=== PATIENT | female | born 1965 | race Two or more races ===

== ENCOUNTER 2020-11-22 15:08 | Emergency (ER) | payer MEDICAID ==
[~2020-11-22] VITALS: Ht 154.9 cm; Wt 64.9 kg
--- NOTE | 2020-11-22 15:25 | NUR ---
PT WAS PLACED ON 5150 HOLD BY GISELLE
--- NOTE | 2020-11-22 15:29 | NUR ---
DAUGHTER LEFT CONTACT # [phone]
--- NOTE | 2020-11-22 15:41 | NUR ---
55 years old female depressed overdose with xanax of unknown quantity, alert, oriented x4 denies pain.
--- NOTE | 2020-11-22 15:44 | NUR ---
patient awaiting for medical clearance, ANITRA states she will call poison control.
[2020-11-22 15:49] LABS: BASOPHILS % (AUTO) 0.5 % (0.0-2.0); EOSINOPHILS % (AUTO) 1.8 % (0.0-6.0); HEMATOCRIT 39 % (33-45); HEMOGLOBIN 13.2 g/dL (11.5-14.8); LYMPHOCYTES % (AUTO) 28.7 % (20.0-44.0); MEAN CORPUSCULAR HGB CONC 34 g/dl (31.0-36.0); MEAN CORPUSCULAR VOLUME 89 fL (82-100); MONOCYTES # (AUTO) 0.5 K/uL (0.1-1.30); MONOCYTES % (AUTO) 7.8 % (2.0-12.0); NEUTROPHILS # (AUTO) 4.2 K/uL (1.8-8.9); NEUTROPHILS % (AUTO) 61.2 % (43.0-81.0); PLATELET COUNT (AUTO) 342 K/uL (150-450); RED BLOOD CELL COUNT(AUTO) 4.34 MIL/uL (4.0-5.2); WHITE BLOOD COUNT (AUTO) 6.9 K/uL (4.3-11.0)
[2020-11-22 15:57] LABS: CALCIUM, SERUM 8.8 mg/dL (8.5-10.1); CARBON DIOXIDE 26 mmol/L (21-32); CHLORIDE 94 mmol/L (98-107); CREATININE 0.7 mg/dL (0.6-1.3); GLUCOSE 92 mg/dL (74-106); POTASSIUM 3.9 mmol/L (3.5-5.1); SODIUM SERUM 128 mmol/L (136-145); UREA NITROGEN, BLOOD 7 mg/dL (7-18)
[2020-11-22 16:02] LABS: ALANINE AMINOTRANSFERASE 27 U/L (12-78); ALBUMIN 3.7 g/dL (3.4-5.0); ALKALINE PHOSPHATASE 67 U/L (46-116); ASPARTATE AMINOTRANSFERASE 20 U/L (15-37); BILIRUBIN,DIRECT 0.2 mg/dL (0.0-0.2); BILIRUBIN,TOTAL 0.9 mg/dL (0.2-1.0); TOTAL PROTEIN, SERUM 6.8 g/dL (6.4-8.2)
[2020-11-22 16:03] LABS: ACETAMINOPHEN < 0 ug/ml (10-30); ALCOHOL, BLOOD < 3 mg/dL (0-0)
[2020-11-22] MEDS: IV NS 0.9% 1,000 ML BAG IV ONE (16:50)
[2020-11-22 17:16] LABS: BILIRUBIN,URINE Negative (NEGATIVE); COLOR,URINE YELLOW (YELLOW); LEUKOCYTE ESTERASE ,URINE Negative (NEGATIVE); NITRITE, URINE Negative (NEGATIVE); PROTEIN,URINE Negative (NEGATIVE); UGLUCOSE Negative (NEGATIVE); UROBILINOGEN,URINE 0.2 EU/dL (0.2)
[2020-11-22 17:47] LABS: THYROID STIMULATING HORMONE 9.816 uIU/mL (0.358-3.74)
--- NOTE | 2020-11-22 18:19 | NUR ---
patient sleeping easily aroused to verbal stimuli, vital stable. on 5150 for danger to self.
--- NOTE | 2020-11-22 19:18 | NUR ---
report endorsed to incoming RN all questions answered.
--- NOTE | 2020-11-22 22:06 | NUR ---
[facility] VP DELIVERY PAGED
--- NOTE | 2020-11-23 00:16 | NUR ---
JESSE HA AT BEDSIDE TO VANIA MACK.
--- NOTE | 2020-11-23 01:03 | NUR ---
PT AMBULATORY TO THE BATHROOM WITH STEADY GAIT NOTED. PT CALM AND COOEPRATIVE. 1:1 SITTER REMAINS AT BEDSIDE FOR PT SAFETY. PT DENIES PAIN OR DISCOMFORT AT THIS TIME. NO ACUTE DISTRESS NOTED.
[2020-11-23 05:27] LABS: CALCIUM, SERUM 8.8 mg/dL (8.5-10.1); CREATININE 0.7 mg/dL (0.6-1.3); POTASSIUM 4.3 mmol/L (3.5-5.1)
--- NOTE | 2020-11-23 05:34 | NUR ---
AMBULATED TO THE RESTROOM AND BACK
--- NOTE | 2020-11-23 09:00 | NUR ---
ELEANOR FROM [facility] CALLED AT [phone]. ELEANOR WILL CALLBACK AFTER GETTING A BED
--- NOTE | 2020-11-23 09:02 | NUR ---
PATIENT A/OX4, BREATHING EVEN AND UNLABORED, NO SOB NOTED. NEEDS ATTENDED. GIVEN BREAKFAST TRAY.
--- NOTE | 2020-11-23 10:14 | NUR ---
BECCA, , RICH CALLED.
--- NOTE | 2020-11-23 10:27 | NUR ---
NURSE ELEANOR CALLED AND STATES THAT PT NEEDS A PCR AND THEN THEYLL PROVIDE A BED
--- NOTE | 2020-11-23 10:53 | NUR ---
WILL CLARIFY WITH [facility] RE: PCR TESTING. AWAITING FOR CHARGE NURSE TO CALL BACK.
--- NOTE | 2020-11-23 11:02 | NUR ---
CRISTAL called [facility] [phone] regarding PCR test and spoke to Barbara who clarified that they just want SO to complete PCR test and [facility] will take the pt. as long as we can provide PCR test result at some point. Notified ED RN, Sony [phone]
--- NOTE | 2020-11-23 11:24 | NUR ---
COVID PCR SENT TO LAB. AWAITING FOR BED ASSIGNED AT [facility]. INFORMED THE PATIENT RE: ACCEPTANCE.
--- NOTE | 2020-11-23 11:38 | NUR ---
ELEANOR FROM [facility] CALLED BACK. BED 144-[address] MENG NURSE TO NURSE REPORT AT [phone] PLEASE REPORT AFTER 1300
--- NOTE | 2020-11-23 12:44 | NUR ---
SET UP S TRANSPORT TO [facility]. SPOKE WITH KHLOE. ETA IS [id number]
--- NOTE | 2020-11-23 13:00 | NUR ---
NEW ROOM AT [facility] IS 285-A. CALL [phone] FOR REPORT
--- NOTE | 2020-11-23 13:09 | NUR ---
report given to Melinda Elizalde for otilia.
[2020-11-23 14:30] VITALS: BP 118/71
--- NOTE | 2020-11-23 15:01 | NUR ---
patient picked up by private ambulance going to [facility] in no distress.
== END 2020-11-23 15:01 | disposition short-term general hospital (02) ==
LOC: ER 15:12
DX: T42.4X2A Poisoning by benzodiazepines, intentional self-harm, initial encounter (principal); R53.83 Other fatigue; Y92.019 Unspecified place in single-family (private) house as the place of occurrence of the external cause; E87.1 Hypo-osmolality and hyponatremia; E02 Subclinical iodine-deficiency hypothyroidism; F32.9 Major depressive disorder, single episode, unspecified; F41.9 Anxiety disorder, unspecified; Z20.822 Contact with and (suspected) exposure to COVID-19; E11.9 Type 2 diabetes mellitus without complications
CPT/HCPCS: 36415 ×2; 80048 ×2; 80076; 80143; 80307; 80320; 81003; 84439; 84443; 84480; 85025; 87426; 93005; 96360; 99285; C9803 ×2; J7030; U0003; G0480

== ENCOUNTER 2021-07-04 13:13 | Inpatient (IN) | payer SELFPAY ==
[~2021-07-04] VITALS: Ht 157.5 cm; Wt 68.0 kg
--- NOTE | 2021-07-04 13:21 | NUR ---
BIBRA39 HOME, SYNCOPE AND WAS NOTED W/ SEIZURE LIKE ACTIVITY. BG 49 WAS GIVEN ORAL GLUCOSE SUPERVISOR CUTTING AND SEWING ROOM, BS UPON ARRIVAL 59, MD AWARE, AT BEDSIDE, PT AAOX2, BREATHING EVEN AND NON LABORED.
--- NOTE | 2021-07-04 13:25 | NUR ---
BS 59, DR QUEEN AWARE
[2021-07-04] MEDS ORDERED: IV D5/0.45 NACL 500 ML IV ONE (13:30)
--- NOTE | 2021-07-04 13:35 | NUR ---
MANAGER FLEET AT BEDSIDE FOR BLOOD DRAW
[2021-07-04 13:47] LABS: BASOPHILS # (AUTO) 0.1 K/uL (0.0-0.2); BASOPHILS % (AUTO) 0.6 % (0.0-2.0); HEMOGLOBIN 12.6 g/dL (11.5-14.8)
--- NOTE | 2021-07-04 14:18 | NUR ---
BACK FROM CT
[2021-07-04 14:22] LABS: CALCIUM, SERUM 9.2 mg/dL (8.5-10.1); CARBON DIOXIDE 25 mmol/L (21-32); CHLORIDE 96 mmol/L (98-107); CREATININE 0.8 mg/dL (0.6-1.3); GLUCOSE 83 mg/dL (74-106); POTASSIUM 4.1 mmol/L (3.5-5.1); SODIUM SERUM 134 mmol/L (136-145); UREA NITROGEN, BLOOD 21 mg/dL (7-18)
--- NOTE | 2021-07-04 14:26 | NUR ---
BS 147
--- NOTE | 2021-07-04 14:27 | NUR ---
DR ALCANTARA AT BEDSIDE TALKING TO THE PATIENT
[2021-07-04 14:28] LABS: ALANINE AMINOTRANSFERASE 30 U/L (12-78); ALKALINE PHOSPHATASE 97 U/L (46-116); ASPARTATE AMINOTRANSFERASE 33 U/L (15-37); BILIRUBIN,DIRECT 0.1 mg/dL (0.0-0.2); BILIRUBIN,TOTAL 0.8 mg/dL (0.2-1.0); TOTAL PROTEIN, SERUM 7.8 g/dL (6.4-8.2)
[2021-07-04 14:30] LABS: ACETAMINOPHEN 0 ug/ml (10-30); ALCOHOL, BLOOD < 3 mg/dL (0-0)
[2021-07-04 14:53] LABS: EOSINOPHILS % (AUTO) 3.2 % (0.0-6.0); HEMATOCRIT 39 % (33-45); LYMPHOCYTES % (AUTO) 25.8 % (20.0-44.0); MEAN CORPUSCULAR HGB CONC 33 g/dl (31.0-36.0); MEAN CORPUSCULAR VOLUME 84 fL (82-100); MONOCYTES # (AUTO) 0.7 K/uL (0.1-1.30); MONOCYTES % (AUTO) 6.4 % (2.0-12.0); NEUTROPHILS # (AUTO) 7.3 K/uL (1.8-8.9); RED BLOOD CELL COUNT(AUTO) 4.56 MIL/uL (4.0-5.2); WHITE BLOOD COUNT (AUTO) 11.5 K/uL (4.3-11.0)
[2021-07-04] MEDS ORDERED: ACETAMINOPHEN 325 MG TABLET PO ONE (15:00)
[2021-07-04] MEDS ORDERED: MIRT7.5T10 PO (15:05)
[2021-07-04] MEDS ORDERED: AMLO-212 PO (15:05)
[2021-07-04] MEDS ORDERED: SERT25TA PO (15:05)
[2021-07-04] MEDS ORDERED: LOSA100T31 PO (15:05)
[2021-07-04] MEDS ORDERED: METF-440 PO (15:05)
[2021-07-04] MEDS ORDERED: LEVO75TA7 PO (15:05)
[2021-07-04 15:13] LABS: PLATELET COUNT (AUTO) 313 K/uL (150-450)
[2021-07-04] MEDS ORDERED: ACETAMINOPHEN 325 MG TABLET ONE (15:18)
--- NOTE | 2021-07-04 15:22 | NUR ---
COVID SWAB DONE AND SENT TO LAB
[2021-07-04 16:36] LABS: BILIRUBIN,URINE NEGATIVE (NEGATIVE); COLOR,URINE YELLOW (YELLOW); LEUKOCYTE ESTERASE ,URINE NEGATIVE (NEGATIVE); NITRITE, URINE NEGATIVE (NEGATIVE); PH,URINE 6.5 (5.0-8.0); PROTEIN,URINE 30 mg/dl (NEGATIVE); UGLUCOSE NEGATIVE (NEGATIVE); UROBILINOGEN,URINE 0.2 EU/dL (0.2)
[2021-07-04 16:56] LABS: BACTERIA,URINE 1+ /HPF (None Seen)
--- NOTE | 2021-07-04 18:25 | NUR ---
DR DYSON AT BEDSIDE TALKING TO THE PATIENT
--- NOTE | 2021-07-04 18:47 | NUR ---
BED 310-2.
--- NOTE | 2021-07-04 19:22 | NUR ---
REPORT GIVEN TO CHAS DELONG FOR MANDO
--- NOTE | 2021-07-04 19:28 | NUR ---
MRSA SWAB COLLECTED AND SENT TO LAB. PATIENT'S BELONGINGS LIST DONE.
--- NOTE | 2021-07-04 19:32 | NUR ---
RN NOTES RECEIVED REPORT FROM ER, CHARGE NURSE AND PAYROLL CLERK AWARE; AWAITING FOR PATIENT ARRIVAL ON UNIT
--- NOTE | 2021-07-04 20:06 | NUR ---
CHAINSTITCH HEMMERAPPLICATIONS CONSULTANT NOTES PATIENT ARRIVED ON UNIT VIA [place] 2005, ACCOMPANIED BY 2 ER STAFF; PATIENT AAOX4, BREATHING EVEN AND UNLABORED; PATIENT TOLERATING ROOM AIR WELL; VSS; PATIENT DENIES ANY PAIN OR DISCOMFORT AT THIS TIME; NO DISTRESS NOTED; PATIENT IS AMBULATORY, WITH STEADY GAIT, USED RESTROOM PRIOR TO START OF ADMISSION; PATIENT EXPLAINED MEDICAL HISTORY; PATIENT VERBALIZED REASONS WHY SHE CAME TO HOSPITAL, PATIENT WORRIED ABOUT HER BLOOD SUGARS SINCE SHE WAS HYPOGLYCEMIC EARLIER TODAY; PATIENT ALSO REPORTED COVID VACCINATED, PATIENT DOES NOT WANT FLU/PNA VACCINE; PATIENT IS TELE; TELE MONITOR READS NSR 76BPM; PATIENT HAS R HAND #20G INTACT AND PATENT, FLUSHING WELL; NO S/S OF REDNESS OR INFILTRATION NOTED; PATIENT TOLERATING IVF D5NS @ 80ML/HR; PATIENT ORIENTED TO STAFF AND UNIT; EXPLAINED TO PATIENT PLAN OF CARE, PATIENT VERBALIZED UNDERSTANDING OF TREATMENT PLAN AND MEDICATION REGIME; PATIENT IS AWARE OF BLOOD SUGAR CHECKS AND VITAL SIGNS DONE EVERY 4 HOURS; BED LOCKED IN LOW POSITION; SIDE RAILS X2 UP; CALL LIGHT WITHIN REACH; WILL CONT TO MONITOR PATIENT
[2021-07-04] MEDS ORDERED: ACETAMINOPHEN 325 MG TABLET PO PRN (20:30)
[2021-07-04] MEDS ORDERED: Z GUARD REMEDY 4 OZ OINT TP PRN (20:30)
[2021-07-04] MEDS ORDERED: DEXTROSE 50%-WATER 50 ML DISP.SYRIN IV PRN (20:30)
[2021-07-04] MEDS ORDERED: ONDANSETRON HCL/PF 4 MG/2 ML VIAL IVP PRN (20:30)
--- NOTE | 2021-07-04 20:30 | NUR ---
PT TRANSFERRED VIA [facility]S
[2021-07-04 20:59] VITALS: BP 139/72
[2021-07-04 21:00] VITALS: BP 139/72
[2021-07-04] MEDS: IV D5/ 0.9% NACL 1,000 ML IV PRN (21:19)
[2021-07-04] MEDS: BLOOD SUGAR DIAGNOSTIC 1 EACH STRIP IN SCH (21:27)
[2021-07-04] MEDS: MIRTAZAPINE 15 MG TABLET PO SCH (21:27)
[2021-07-04] MEDS: ENOXAPARIN SODIUM 40 MG/0.4 ML DISP.SYRIN SQ SCH (21:28)
[2021-07-05] VITALS: BP 123/59
[2021-07-05] MEDS: BLOOD SUGAR DIAGNOSTIC 1 EACH STRIP IN SCH ×6 (00:32→21:37)
--- NOTE | 2021-07-05 00:35 | NUR ---
FOREST OFFICER NOTES PATIENT BLOOD SUGAR 94MG/DL, PATIENT PROVIDED SNACK AND JUICE. PATIENT AWARE OF ROUTINE ACCU CHECKS SCHEDULED EVERY 4 HOURS THROUGHOUT HER HOSPITALIZATION; WILL CONT TO MONITOR
[2021-07-05 04:00] VITALS: BP 130/72
--- NOTE | 2021-07-05 04:25 | NUR ---
MANDOLIN REPAIRER NOTES PATIENT BLOOD SUGAR 100MG/DL 0425; NO COVERAGE NEEDED; PATIENT ON D5NS @80ML/HR; CHARGE NURSE AWARE OF ACCU CHECK RESULTS, WILL CONT TO MONITOR
[2021-07-05] MEDS: LEVOTHYROXINE SODIUM 75 MCG TABLET PO SCH (06:31)
[2021-07-05] MEDS: PANTOPRAZOLE 40 MG TABLET.DR PO SCH (06:31)
--- NOTE | 2021-07-05 06:36 | NUR ---
MUD CLEANER OPERATOR CLOSING NOTES PATIENT AAOX4, BREATHING EVEN AND UNLABORED; PATIENT TOLERATING ROOM AIR WELL; VSS; PATIENT DENIES ANY PAIN OR DISCOMFORT AT THIS TIME; NO DISTRESS NOTED; TELE MONITOR READS NSR 76BPM; PATIENT HAS R HAND #20G INTACT AND PATENT, FLUSHING WELL; NO S/S OF REDNESS OR INFILTRATION NOTED; PATIENT TOLERATING IVF D5NS @ 80ML/HR; PATIENT; ALL NEEDS RENDERED; BED LOCKED IN LOW POSITION; SIDE RAILS X2 UP; CALL LIGHT WITHIN REACH; WILL ENDORSE MANDO
[2021-07-05 06:48] LABS: BASOPHILS % (AUTO) 0.4 % (0.0-2.0); EOSINOPHILS % (AUTO) 3.6 % (0.0-6.0); HEMATOCRIT 37 % (33-45); HEMOGLOBIN 12.2 g/dL (11.5-14.8); LYMPHOCYTES # (AUTO) 1.7 K/uL (0.8-4.8); LYMPHOCYTES % (AUTO) 24.1 % (20.0-44.0); MEAN CORPUSCULAR HGB CONC 33 g/dl (31.0-36.0); MEAN CORPUSCULAR VOLUME 84 fL (82-100); MONOCYTES # (AUTO) 0.6 K/uL (0.1-1.30); NEUTROPHILS # (AUTO) 4.6 K/uL (1.8-8.9); NEUTROPHILS % (AUTO) 63.9 % (43.0-81.0); PLATELET COUNT (AUTO) 280 K/uL (150-450); RED BLOOD CELL COUNT(AUTO) 4.39 MIL/uL (4.0-5.2); WHITE BLOOD COUNT (AUTO) 7.2 K/uL (4.3-11.0)
[2021-07-05 07:11] LABS: CALCIUM, SERUM 8.8 mg/dL (8.5-10.1); CREATININE 0.7 mg/dL (0.6-1.3); MAGNESIUM 2.3 mg/dL (1.8-2.4); PHOSPHORUS 4.1 mg/dL (2.5-4.9)
--- NOTE | 2021-07-05 07:37 | NUR ---
RN OPENING NOTES PATIENT AWAKE IN BED RESTING, A/O X4. NO S/S OF PAIN NOTED AT THIS TIME. PATIENT ON ROOM AIR, NO DISTRESS OR SHORTNESS OF BREATH. IV ACCESS R HAND#20G INTACT, PATENT AND FLUSHING WELL. PATIENT HAS AN EXTERNAL MECHANICAL EXPERT CURRENT READING OF S.R AND HR OF 76. FALL AND SAFETY MEASURES IN PLACE, BED ALARM ON, BED IN LOW AND LOCK POSITION, CALL LIGHT AND TABLE WITHIN EASY REACH, SIDE RAILS UP X2. WILL CONTINUE TO MONITOR.
[2021-07-05 07:54] LABS: THYROID STIMULATING HORMONE 3.129 uIU/mL (0.358-3.74)
[2021-07-05 08:00] VITALS: BP 128/75
[2021-07-05] MEDS: LOSARTAN POTASSIUM 50 MG TABLET PO SCH (09:04)
[2021-07-05] MEDS: SERTRALINE HCL 25 MG TABLET PO SCH (09:04)
[2021-07-05] MEDS: AMLODIPINE BESYLATE 5 MG TABLET PO SCH (09:04)
[2021-07-05] MEDS: INSULIN REGULAR, HUMAN 100 UNIT/ML 3 ML VIAL SQ PRN ×3 (09:14→21:42)
--- NOTE | 2021-07-05 09:17 | NUR ---
RN NOTE PATIENT 0900 GLUCOSE WAS 142. PER SINDING SCALE PATIENT NEEDS 2 UNITS OF INSULIN. PATIENT REFUSED THE INSULIN. 2 UNITS OF INSULIN NOT ADMINISTERED. WILL CONTINUE TO MONITOR.
[2021-07-05 12:00] VITALS: BP 118/63
--- NOTE | 2021-07-05 12:00 | NUR ---
RN NOTE PATIENT 1200 GLUCOSE WAS 157. PER SINDING SCALE PATIENT NEEDS INSULIN. PATIENT REFUSED THE INSULIN. INSULIN NOT ADMINISTERED. DOCTOR PALOMO WAS INFORMED, DOCTOR SAID TO STOP D5 NS FOR NOW, MAKE SURE PATIENT EAT AND CONTINUE TO MONITOR.
[2021-07-05 16:00] VITALS: BP 113/67
--- NOTE | 2021-07-05 18:40 | NUR ---
RN CLOSING NOTES PATIENT AWAKE IN BED RESTING, A/O X4. NO S/S OF PAIN NOTED AT THIS TIME. PATIENT ON ROOM AIR, NO DISTRESS OR SHORTNESS OF BREATH. IV ACCESS R HAND #20G INTACT, PATENT AND FLUSHING WELL. PATIENT HAS AN EXTERNAL BUSINESS MACHINES TEACHER CURRENT READING OF S.R AND HR OF 77. FALL AND SAFETY MEASURES IN PLACE, BED ALARM ON, BED IN LOW AND LOCK POSITION, CALL LIGHT AND TABLE WITHIN EASY REACH, SIDE RAILS UP X2. WILL ENDORSE TO DYE HOUSE WHEEL OPERATOR.
--- NOTE | 2021-07-05 19:30 | NUR ---
RN OPENING NOTE PATIENT IN BED, AWAKE. PATIENT IS A/O X 4, ABLE TO MAKE NEEDS KNOWN. DUTCH SPEAKING BUT ABLE TO SPEAK AND UNDERSTAND [place]. PATIENT IS CURRENTLY ON RA, TOLERATING WELL. NO SIGNS OF DISTRESS. TELE MONITOR READS SR WITH HR OF 76 BPM. PATIENT HAS A RHAND 20 G, PATENT AND INTACT, INFUSING D5 NS @80 ML/HR. PATIENT NO COMPLAINS OF PAIN AT THIS TIME. SAFETY MEASURES IN PLACE: BED LOCKED AND IN LOWEST POSITION, CALL LIGHT WITHIN REACH, SIDE RAILS UP. WILL MONITOR PATIENT CLOSELY
[2021-07-05 20:00] VITALS: BP 115/60
--- NOTE | 2021-07-05 21:30 | NUR ---
RN NOTE PATIENT REFUSED INSULIN FOR BS 160 MG/DL. WILL MONITOR FOR HYPER/HYPOGLYCEMIA.
[2021-07-05] MEDS: MIRTAZAPINE 15 MG TABLET PO SCH (21:33)
[2021-07-05] MEDS: ENOXAPARIN SODIUM 40 MG/0.4 ML DISP.SYRIN SQ SCH (21:36)
--- NOTE | 2021-07-05 22:33 | NUR ---
TYLENOL GIVEN FOR R SHOULDER PAIN
[2021-07-06] VITALS: BP 123/69
--- NOTE | 2021-07-06 01:30 | NUR ---
BS 98 MG/DL. PATIENT REFUSING IVF AT THIS TIME AND ASKED FOR IT TO BE TURNED ON AT 8 AM. EXPLAINED TO PATIENT THAT THIS HELPS MAINTAIN BS LEVEL. STILL REFUSING. PATIENT GIVEN SNACKS AND JUICE TO PREVENT HYPOGLYCEMIA. WILL CONTINUE TO MONITOR
[2021-07-06] MEDS: BLOOD SUGAR DIAGNOSTIC 1 EACH STRIP IN SCH ×4 (01:33→12:32)
[2021-07-06 04:00] VITALS: BP 116/61
--- NOTE | 2021-07-06 05:06 | NUR ---
BS 98 MG/DL, NO COVERAGE GIVEN, BAYRON PROVIDED Addendum: 07/06/21 at 0506 by JENARO SOL RN JUICE*
[2021-07-06 06:24] LABS: BASOPHILS % (AUTO) 0.5 % (0.0-2.0); EOSINOPHILS % (AUTO) 7.5 % (0.0-6.0); HEMATOCRIT 36 % (33-45); HEMOGLOBIN 11.7 g/dL (11.5-14.8); LYMPHOCYTES # (AUTO) 2.2 K/uL (0.8-4.8); LYMPHOCYTES % (AUTO) 34.9 % (20.0-44.0); MEAN CORPUSCULAR HGB CONC 33 g/dl (31.0-36.0); MEAN CORPUSCULAR VOLUME 84 fL (82-100); MONOCYTES # (AUTO) 0.6 K/uL (0.1-1.30); NEUTROPHILS # (AUTO) 2.9 K/uL (1.8-8.9); NEUTROPHILS % (AUTO) 47.1 % (43.0-81.0); PLATELET COUNT (AUTO) 249 K/uL (150-450); RED BLOOD CELL COUNT(AUTO) 4.24 MIL/uL (4.0-5.2); WHITE BLOOD COUNT (AUTO) 6.2 K/uL (4.3-11.0)
[2021-07-06] MEDS: IV D5/ 0.9% NACL 1,000 ML IV PRN (06:34)
--- NOTE | 2021-07-06 06:38 | NUR ---
RN CLOSING NOTE PATIENT IN BED, AWAKE. PATIENT IS A/O X 4, ABLE TO MAKE NEEDS KNOWN. GEORGIAN SPEAKING BUT ABLE TO SPEAK AND UNDERSTAND MAORI. PATIENT IS CURRENTLY ON RA, TOLERATING WELL. NO SIGNS OF DISTRESS. TELE MONITOR READS SR WITH HR OF 76 BPM. PATIENT HAS A RHAND 20 G, PATENT AND INTACT, D5 NS @80 ML/HR TO BE TURNED ON AT 8 AM PER PATIENT REQUEST. PATIENT NO COMPLAINS OF PAIN AT THIS TIME. SAFETY MEASURES IN PLACE: BED LOCKED AND IN LOWEST POSITION, CALL LIGHT WITHIN REACH, SIDE RAILS UP. ALL NEEDS MET AND ATTENDED
[2021-07-06] MEDS: PANTOPRAZOLE 40 MG TABLET.DR PO SCH (07:30)
[2021-07-06 07:55] LABS: CALCIUM, SERUM 8.5 mg/dL (8.5-10.1); CREATININE 0.7 mg/dL (0.6-1.3); PHOSPHORUS 3.8 mg/dL (2.5-4.9); POTASSIUM 3.7 mmol/L (3.5-5.1)
[2021-07-06 08:00] VITALS: BP 137/82
--- NOTE | 2021-07-06 08:01 | NUR ---
RN OPENING NOTE RECEIVED PATIENT IN BED, AO X 4, IN NO ACUTE DISTRESS AT THIS TIME. SATURATION AT 96% ON ROOM AIR. SKIN IS WARM TO TOUCH, KEEP CLEAN/DRY, INTACT IV AND FLUSHING WELL. SAFETY MEASURES IMPLEMENTED. PATIENT BED ALARM IS ON. HEAD OF BED ELEVATED. BED IS LOCKED, IN LOWEST POSITION AND SIDE RAILS UP. CALL LIGHT WITHIN REACH OF THE PATIENT. WILL CONTINUE TO MONITOR AND REASSESS FOR ANY CHANGES.
[2021-07-06] MEDS: LEVOTHYROXINE SODIUM 75 MCG TABLET PO SCH (08:43)
[2021-07-06] MEDS: SERTRALINE HCL 25 MG TABLET PO SCH (08:43)
[2021-07-06 08:44] VITALS: BP 137/82
[2021-07-06] MEDS: AMLODIPINE BESYLATE 5 MG TABLET PO SCH (08:44)
[2021-07-06] MEDS: LOSARTAN POTASSIUM 50 MG TABLET PO SCH (08:44)
[2021-07-06] MEDS: INSULIN REGULAR, HUMAN 100 UNIT/ML 3 ML VIAL SQ PRN (08:52)
--- NOTE | 2021-07-06 08:53 | NUR ---
PATIENT REFUSED INTAKE REGULAR INSULIN, BS 233MG/DL.
--- NOTE | 2021-07-06 15:43 | NUR ---
PATIENT DISCHARGE TO HOME, GIVEN DISCHARGE INSTRUCTION INCLUDE DISCONTINUE/CONTINUE TO MEDICATIONS AND FOLLOW UP PRIMARY MD. PATIENT IN STABLE CONDITION, ACCOMPANIED BY PATIENT'S SISTER TO THE PRIVATE CAR AND LEFT FACILITY.
== END 2021-07-06 15:30 | disposition home or self-care (01) | DRG 638 ==
LOC: ER 13:14 → TRANSITION 18:35 → TELE 18:52
PROVIDERS: ADMIT Nurse Practitioner Acute Care; ATTEND Student in an Organized Health Care Education/Training Program
DX: E11.649 Type 2 diabetes mellitus with hypoglycemia without coma (principal); E87.1 Hypo-osmolality and hyponatremia; T38.3X5A Adverse effect of insulin and oral hypoglycemic [antidiabetic] drugs, initial encounter; Y92.009 Unspecified place in unspecified non-institutional (private) residence as the place of occurrence of the external cause; N17.0 Acute kidney failure with tubular necrosis; F41.9 Anxiety disorder, unspecified; F32.A Depression, unspecified; I10 Essential (primary) hypertension; Z79.84 Long term (current) use of oral hypoglycemic drugs; E03.9 Hypothyroidism, unspecified; F32.9 Major depressive disorder, single episode, unspecified; R56.9 Unspecified convulsions
CPT/HCPCS: 36415; 70450-TC; 73030-TC; 80048-TC; 80061-TC; 80076-TC; 81001; 82962-TC; 83735-TC; 84100-TC; 84443-TC; 85025-TC; 87081-TC; C9803; G0378; G0480; J1650; J1815; J3490; J7042

== ENCOUNTER 2024-12-12 10:20 | Inpatient (IN) | payer OTHER ==
[~2024-12-12] VITALS: Ht 154.9 cm; Wt 90.3 kg
[~2024-12-12 10:20] MED LIST: AMLO-212 PO; LEVO75TA7 PO; LOSA100T31 PO; MIRT7.5T10 PO; SERT25TA PO
[2024-12-12 11:23] LABS: PLATELET COUNT (AUTO) 294 K/uL (150-450); RED BLOOD CELL COUNT(AUTO) 4.68 MIL/uL (4.0-5.2); RED CELL DISTRIBUTION WIDTH 14.7 % (11.5-15.0); WHITE BLOOD COUNT (AUTO) 9.0 K/uL (4.3-11.0)
[2024-12-12] MEDS ORDERED: KETOROLAC TROMETHAMINE 15 MG/ML VIAL ONE (11:25)
[2024-12-12 11:34] LABS: LACTIC ACID 2.5 mmol/L (0.4-2.0)
[2024-12-12 11:39] LABS: CALCIUM, SERUM 9.3 mg/dL (8.5-10.1); CREATININE 0.9 mg/dL (0.6-1.3); SODIUM SERUM 129.0 mmol/L (136-145); UREA NITROGEN, BLOOD 11.0 mg/dL (7-18)
[2024-12-12] MEDS: IV NS 0.9% 500 ML BAG IV ONE (11:40)
[2024-12-12] MEDS: KETOROLAC TROMETHAMINE 15 MG/ML VIAL IV ONE (11:41)
[2024-12-12 11:42] LABS: ASPARTATE AMINOTRANSFERASE 9.0 U/L (15-37); TOTAL PROTEIN, SERUM 7.5 g/dL (6.4-8.2)
[2024-12-12] MEDS ORDERED: CARB15DR EACHEYE (11:59)
[2024-12-12] MEDS ORDERED: CHOL100062 PO (11:59)
[2024-12-12] MEDS ORDERED: ENTA200T30 PO (11:59)
[2024-12-12] MEDS ORDERED: GLUC1KIT IM (11:59)
[2024-12-12] MEDS ORDERED: MELA3TAB41 PO (11:59)
[2024-12-12] MEDS ORDERED: ACET-868 PO (11:59)
[2024-12-12] MEDS ORDERED: INSU100V7 SQ (11:59)
[2024-12-12] MEDS ORDERED: MECL-159 PO (11:59)
[2024-12-12] MEDS ORDERED: MELO-105 PO (11:59)
[2024-12-12] MEDS ORDERED: POLY17PO4 PO (11:59)
[2024-12-12] MEDS ORDERED: INSU100V42 SQ ×2 (11:59)
[2024-12-12] MEDS ORDERED: PSYL822P6 PO (11:59)
[2024-12-12] MEDS ORDERED: CARB1TAB21 PO (11:59)
[2024-12-12] MEDS ORDERED: LEVO100T PO (11:59)
[2024-12-12] MEDS ORDERED: GABA-532 PO (11:59)
[2024-12-12] MEDS ORDERED: SIME80TA15 PO (11:59)
[2024-12-12] MEDS ORDERED: LOSA50TA39 PO (11:59)
[2024-12-12] MEDS ORDERED: CRAN3875 PO (11:59)
[2024-12-12] MEDS ORDERED: CRAN400C PO (11:59)
[2024-12-12 12:04] LABS: INR 0.99 (0.91-1.10)
[2024-12-12] MEDS: IV NS 0.9% 1,000 ML BAG IV ONE (12:15)
[2024-12-12] MEDS: PIPERACILLIN /TAZOBACTAM 3.375 G in IV D5W 50 ML IV ONE (12:19)
[2024-12-12 13:21] LABS: APPEARANCE,URINE SLIGHTLY CLOUDY (CLEAR); BLOOD, URINE NEGATIVE Ery/uL (NEGATIVE); LEUKOCYTE ESTERASE ,URINE TRACE (NEGATIVE); NITRITE, URINE POSITIVE (NEGATIVE); UGLUCOSE NEGATIVE (NEGATIVE)
[2024-12-12 13:37] LABS: ADD URINE CULTURE YES; SQUAMOUS EPITHELIAL CELL,UR 0-2 /HPF (None Seen)
[2024-12-12] MEDS ORDERED: Z GUARD REMEDY 4 OZ OINT TP PRN (14:30)
[2024-12-12] MEDS ORDERED: DEXTROSE 50%-WATER 50 ML DISP.SYRIN IV PRN (14:30)
[2024-12-12] MEDS ORDERED: MAGNESIUM HYDROXIDE 30 ML UDC PO PRN (14:30)
[2024-12-12] MEDS ORDERED: ONDANSETRON HCL/PF 4 MG/2 ML VIAL IVP PRN (14:30)
[2024-12-12] MEDS: CEFTRIAXONE 1 G in IV D5W 50 ML IV SCH (15:30)
[2024-12-12] MEDS ORDERED: CEFTRIAXONE 1GM BAG (ER ONLY) 50 ML IV ONE (15:52)
[2024-12-12] MEDS: ENOXAPARIN SODIUM 40 MG/0.4 ML DISP.SYRIN SQ SCH (17:22)
[2024-12-12] MEDS: IV NS 0.9% 1,000 ML IV PRN (17:24)
[2024-12-12] MEDS: BLOOD SUGAR DIAGNOSTIC 1 EACH STRIP IN SCH (17:33)
[2024-12-12] MEDS: INSULIN REGULAR, HUMAN 100 UNIT/ML 3 ML VIAL SQ PRN (17:59)
[2024-12-12 20:00] VITALS: BP 119/58; TEMP 97.9; O2SAT 95
[2024-12-12] MEDS: POLYVINYL ALCOHOL 15 ML BOTTLE EACHEYE PRN (20:32)
[2024-12-12] MEDS: CARBIDOPA/LEVODOPA 25/100 MG 1 UDTAB PO SCH (20:59)
[2024-12-12] MEDS ORDERED: MECLIZINE HCL 25 MG TABLET PO PRN (21:00)
[2024-12-12] MEDS: MIRTAZAPINE 15 MG TABLET PO SCH (21:05)
[2024-12-13] MEDS: MAG HYDROX/AL HYDROX/SIMETH 30 ML UDC PO PRN (02:15)
[2024-12-13 08:00] VITALS: BP 119/56; TEMP 98.2; O2SAT 100
[2024-12-13 08:04] LABS: CALCIUM, SERUM 9.0 mg/dL (8.5-10.1); CREATININE 0.9 mg/dL (0.6-1.3); PHOSPHORUS 3.4 mg/dL (2.5-4.9); SODIUM SERUM 139.0 mmol/L (136-145); UREA NITROGEN, BLOOD 12.0 mg/dL (7-18)
[2024-12-13 08:08] LABS: PLATELET COUNT (AUTO) 267 K/uL (150-450); RED BLOOD CELL COUNT(AUTO) 4.80 MIL/uL (4.0-5.2); RED CELL DISTRIBUTION WIDTH 14.7 % (11.5-15.0); WHITE BLOOD COUNT (AUTO) 7.4 K/uL (4.3-11.0)
[2024-12-13] MEDS: LEVOTHYROXINE SODIUM 100 MCG TABLET PO SCH (08:27)
[2024-12-13] MEDS: ENTACAPONE 200 MG TABLET PO SCH (08:27)
[2024-12-13] MEDS: LOSARTAN POTASSIUM 50 MG TABLET PO SCH (08:28)
[2024-12-13] MEDS: PSYLLIUM SEED 1 PKT PACKET PO SCH (08:28)
[2024-12-13] MEDS: MELOXICAM 7.5 MG TABLET PO SCH (08:28)
[2024-12-13] MEDS: GABAPENTIN 100 MG CAPSULE PO SCH (08:28)
[2024-12-13] MEDS: CHOLECALCIFEROL 1,000 UNIT TABLET (VIT D3) PO SCH (08:29)
[2024-12-13] MEDS: AMLODIPINE BESYLATE 5 MG TABLET PO SCH (08:49)
[2024-12-13] MEDS ORDERED: Medication Not On Formulary EA (Cranberry 450 MG) PO SCH (09:00)
[2024-12-13] MEDS ORDERED: Medication Not On Formulary EA (Cran/Vitc/Mannose/Inulin/Brom (Uti-Stat Liquid) 30 ML) PO SCH (09:00)
[2024-12-13 09:58] VITALS: BP 119/56; TEMP 98.2; O2SAT 97
[2024-12-13 16:00] VITALS: BP 101/58; TEMP 98.2; O2SAT 96
[2024-12-13] MEDS: ENOXAPARIN SODIUM 40 MG/0.4 ML DISP.SYRIN SQ SCH (17:51)
[2024-12-13 20:00] VITALS: BP 117/71; TEMP 98.2; O2SAT 96
[2024-12-14 08:00] VITALS: BP 140/67; TEMP 98.1; O2SAT 98
[2024-12-14] MEDS: ACETAMINOPHEN 325 MG TABLET PO PRN (08:34)
[2024-12-14 16:00] VITALS: BP 131/70; TEMP 98.4; O2SAT 96
[2024-12-14 16:01] VITALS: BP 131/70; TEMP 98.4; O2SAT 96
[2024-12-14] MEDS: SIMETHICONE 80 MG TAB.CHEW PO PRN (17:46)
[2024-12-14 20:06] VITALS: BP 113/60; TEMP 98.2; O2SAT 96
[2024-12-15 07:06] LABS: PLATELET COUNT (AUTO) 268 K/uL (150-450); RED BLOOD CELL COUNT(AUTO) 4.79 MIL/uL (4.0-5.2); RED CELL DISTRIBUTION WIDTH 14.5 % (11.5-15.0); WHITE BLOOD COUNT (AUTO) 6.1 K/uL (4.3-11.0)
[2024-12-15 07:34] LABS: ASPARTATE AMINOTRANSFERASE 22.0 U/L (15-37); CALCIUM, SERUM 8.9 mg/dL (8.5-10.1); CREATININE 0.7 mg/dL (0.6-1.3); PHOSPHORUS 3.2 mg/dL (2.5-4.9); SODIUM SERUM 136.0 mmol/L (136-145); TOTAL PROTEIN, SERUM 7.4 g/dL (6.4-8.2); UREA NITROGEN, BLOOD 12.0 mg/dL (7-18)
[2024-12-15 08:00] VITALS: BP 162/85; TEMP 98.2; O2SAT 96
[2024-12-15 10:00] VITALS: BP 142/59
== END 2024-12-15 14:30 | DRG 463 ==
LOC: ER 10:24 → TELE 16:27 → MED 16:54
DX: N39.0 Urinary tract infection, site not specified (principal); G20.A1 Parkinson's disease without dyskinesia, without mention of fluctuations; E87.1 Hypo-osmolality and hyponatremia; E03.9 Hypothyroidism, unspecified; E11.9 Type 2 diabetes mellitus without complications; B96.20 Unspecified Escherichia coli [E. coli] as the cause of diseases classified elsewhere; E66.9 Obesity, unspecified; F32.A Depression, unspecified; I10 Essential (primary) hypertension; Z68.37 Body mass index [BMI] 37.0-37.9, adult; E86.1 Hypovolemia; Z16.12 Extended spectrum beta lactamase (ESBL) resistance; Z79.4 Long term (current) use of insulin
CPT/HCPCS: 36415; 71045-TC; 72170-TC; 80048-TC; 80053-TC; 80076-TC; 81001; 82962-TC; 83605-TC; 83690-TC; 83735-TC; 84100-TC; 85025-TC; 85730-TC; 87040-TC; 87081-TC; 87086-TC; 87186-TC; 97110-TC; 97116-TC; 97530-TC; A4223; G0378; J0696; J1650; J1815; J1885; J2543; J7030; J7040; J7060

== ENCOUNTER 2025-02-26 13:16 | Inpatient (IN) | payer OTHER ==
[~2025-02-26] VITALS: Ht 162.6 cm; Wt 74.8 kg
[~2025-02-26 13:16] MED LIST changes: +ACET-868 PO; +CARB15DR EACHEYE; +CARB1TAB21 PO; +CHOL100062 PO; +CRAN3875 PO; +CRAN400C PO; +ENTA200T30 PO; +GABA-532 PO; +GLUC1KIT IM; +INSU100V42 SQ; +INSU100V7 SQ; +LEVO100T PO; -LEVO75TA7 PO; -LOSA100T31 PO; +LOSA50TA39 PO; +MECL-159 PO; +MELA3TAB41 PO; +MELO-105 PO; +POLY17PO4 PO; +PSYL822P6 PO; +SIME80TA15 PO
[2025-02-26 13:56] LABS: PLATELET COUNT (AUTO) 260 K/uL (150-450); RED BLOOD CELL COUNT(AUTO) 4.58 MIL/uL (4.0-5.2); RED CELL DISTRIBUTION WIDTH 14.0 % (11.5-15.0); WHITE BLOOD COUNT (AUTO) 9.9 K/uL (4.3-11.0)
[2025-02-26 14:08] LABS: CALCIUM, SERUM 9.1 mg/dL (8.5-10.1); CREATININE 1.0 mg/dL (0.6-1.3); SODIUM SERUM 136.0 mmol/L (136-145); UREA NITROGEN, BLOOD 13.0 mg/dL (7-18)
[2025-02-26 14:14] LABS: ASPARTATE AMINOTRANSFERASE 23.0 U/L (15-37); TOTAL PROTEIN, SERUM 7.4 g/dL (6.4-8.2)
[2025-02-26] MEDS: IV NS 0.9% 500 ML BAG IV ONE (14:30)
[2025-02-26] MEDS: CEFTRIAXONE 1 G in IV D5W 50 ML IV ONE (15:00)
[2025-02-26] MEDS: IV NS 0.9% 1,000 ML BAG IV ONE (15:00)
[2025-02-26] MEDS ORDERED: CEFTRIAXONE 1GM BAG (ER ONLY) 50 ML IV ONE (15:08)
[2025-02-26 16:00] VITALS: BP 136/65; TEMP 98.1; O2SAT 98
[2025-02-26 16:11] LABS: APPEARANCE,URINE CLEAR (CLEAR); BLOOD, URINE 1+ Ery/uL (NEGATIVE); LEUKOCYTE ESTERASE ,URINE 3+ (NEGATIVE); NITRITE, URINE NEGATIVE (NEGATIVE); UGLUCOSE NEGATIVE (NEGATIVE)
[2025-02-26 16:27] LABS: ADD URINE CULTURE YES; SQUAMOUS EPITHELIAL CELL,UR Few /HPF (None Seen); TRIPLE PHOSPHATE CRYSTAL,UR Moderate /HPF (None Seen); URINE AMORPHOUS PHOSPHATES Moderate /HPF (None Seen)
[2025-02-26 16:31] LABS: AMPHETAMINE, URINE NEGATIVE (NEGATIVE); BARBITURATE, URINE NEGATIVE (NEGATIVE); BENZODIAZEPINE, URINE NEGATIVE (NEGATIVE); CANNABINOID, URINE NEGATIVE (NEGATIVE); COCCAINE, URINE NEGATIVE (NEGATIVE); OPIATE, URINE NEGATIVE (NEGATIVE)
[2025-02-26] MEDS ORDERED: Z GUARD REMEDY 4 OZ OINT TP PRN (18:30)
[2025-02-26] MEDS ORDERED: ONDANSETRON HCL/PF 4 MG/2 ML VIAL IVP PRN (18:30)
[2025-02-26] MEDS ORDERED: MAGNESIUM HYDROXIDE 30 ML UDC PO PRN (18:30)
[2025-02-26] MEDS ORDERED: DEXTROSE 50%-WATER 50 ML DISP.SYRIN IV PRN (18:30)
[2025-02-26] MEDS: ENOXAPARIN SODIUM 40 MG/0.4 ML DISP.SYRIN SQ SCH (18:39)
[2025-02-26] MEDS: HYDROCODONE/APAP 5/325MG TABLET PO PRN (19:57)
[2025-02-26 20:00] VITALS: BP 131/75; TEMP 97.7; O2SAT 96
[2025-02-26] MEDS: BLOOD SUGAR DIAGNOSTIC 1 EACH STRIP IN SCH (21:37)
[2025-02-26] MEDS: INSULIN REGULAR, HUMAN 100 UNIT/ML 3 ML VIAL SQ PRN (21:39)
[2025-02-26] MEDS ORDERED: ZOLPIDEM TARTRATE 5 MG TABLET PO PRN (22:00)
[2025-02-26] MEDS: ACETAMINOPHEN 325 MG TABLET PO PRN (22:52)
[2025-02-26] MEDS: METHOCARBAMOL (500MG) 500 MG TABLET PO SCH (23:43)
[2025-02-27 06:01] LABS: PLATELET COUNT (AUTO) 246 K/uL (150-450); RED BLOOD CELL COUNT(AUTO) 4.48 MIL/uL (4.0-5.2); RED CELL DISTRIBUTION WIDTH 14.0 % (11.5-15.0); WHITE BLOOD COUNT (AUTO) 7.7 K/uL (4.3-11.0)
[2025-02-27 06:17] LABS: CALCIUM, SERUM 9.3 mg/dL (8.5-10.1); CREATININE 0.7 mg/dL (0.6-1.3); PHOSPHORUS 4.1 mg/dL (2.5-4.9); SODIUM SERUM 138.0 mmol/L (136-145); UREA NITROGEN, BLOOD 11.0 mg/dL (7-18)
[2025-02-27 08:00] VITALS: BP 170/78; TEMP 97.7; O2SAT 98
[2025-02-27 08:15] VITALS: BP 160/80; TEMP 97.7; O2SAT 98
[2025-02-27 08:27] VITALS: BP 170/78; TEMP 97.7; O2SAT 95
[2025-02-27] MEDS: AMLODIPINE BESYLATE 5 MG TABLET PO SCH (11:29)
[2025-02-27] MEDS: CEFTRIAXONE 1 G in IV D5W 50 ML IV SCH (14:38)
[2025-02-27 15:00] VITALS: BP 144/76; TEMP 97.5; O2SAT 99
[2025-02-27 20:00] VITALS: BP 124/82; TEMP 98.4; O2SAT 98
[2025-02-28 08:00] VITALS: BP 138/76; TEMP 98.2; O2SAT 96
[2025-02-28 09:27] VITALS: BP 138/76
[2025-02-28] MEDS ORDERED: METH-647 PO (09:31)
[2025-02-28] MEDS ORDERED: NITR100C6 PO (09:31)
[2025-02-28] MEDS: CARBIDOPA/LEVODOPA 25/100 MG 1 UDTAB PO SCH (10:29)
[2025-02-28 10:30] VITALS: TEMP 98.2
== END 2025-02-28 14:00 | DRG 463 ==
LOC: ER 13:39 → MED 16:13
PROVIDERS: ADMIT Nurse Practitioner Family; ATTEND Nurse Practitioner Family
DX: N39.0 Urinary tract infection, site not specified (principal); G20.A1 Parkinson's disease without dyskinesia, without mention of fluctuations; E03.9 Hypothyroidism, unspecified; E11.9 Type 2 diabetes mellitus without complications; B96.89 Other specified bacterial agents as the cause of diseases classified elsewhere; F32.A Depression, unspecified; G89.29 Other chronic pain; I10 Essential (primary) hypertension; R53.1 Weakness; M54.2 Cervicalgia; Z79.4 Long term (current) use of insulin
CPT/HCPCS: 36415; 71045-TC; 80048-TC; 80076-TC; 81001; 82962-TC; 83735-TC; 84100-TC; 85025-TC; 87040-TC; 87081-TC; 87086-TC; A4223; A6403; G0378; J0696; J1650; J1815; J7030; J7040; J7060